=== PATIENT | male | born 1945 | race Caucasian/White ===

== ENCOUNTER 2021-05-18 13:51 | Inpatient (IN) | payer MEDICARE, OTHER ==
[~2021-05-18] VITALS: Ht 165.1 cm; Wt 63.0 kg
[2021-05-18] MEDS ORDERED: 0.9% SODIUM CHLORIDE 10 ML SYRINGE IVP PRN (14:30)
[2021-05-18] MEDS ORDERED: ACETAMINOPHEN 1000 MG/ISO-OSM 100 ML IV ONE (14:45)
[2021-05-18] MEDS ORDERED: ASPIRIN 81 MG CHEWABLE TABLET PO ONE (14:45)
[2021-05-18] MEDS ORDERED: ASPIRIN 325 MG DR TABLET PO ONE (14:45)
[2021-05-18] MEDS ORDERED: SODIUM CHLORIDE 0.9% 2,050 ML IV ONE (14:45)
[2021-05-18] MEDS ORDERED: ONDANSETRON HCL 4 MG/2 ML VIAL IVP ONE (14:45)
[2021-05-18 15:04] LABS: COVID AG,FIA SOURCE NASOPHARYNGEAL
[2021-05-18 15:07] LABS: BASOPHILS % (AUTO) 0.1 % (0.0-2.0); EOSINOPHILS % (AUTO) 0 % (1.0-6.0); HEMATOCRIT 39.2 % (41-53); HEMOGLOBIN 13.6 g/dL (13.5-17.5); LYMPHOCYTES # (AUTO) 0.8 K/uL (1.0-4.8); LYMPHOCYTES % (AUTO) 13.5 % (22.0-44.0); MEAN CORPUSCULAR HEMOGLOBIN 30.4 pg (26.0-34.0); MEAN CORPUSCULAR HGB CONC 34.6 G/dL (31.0-37.0); MEAN CORPUSCULAR VOLUME 88 fL (80-100); MONOCYTES # (AUTO) 0.3 K/uL (0.1-1.0); MONOCYTES % (AUTO) 5.2 % (2.0-9.0); NEUTROPHILS # (AUTO) 4.8 K/uL (1.8-7.7); NEUTROPHILS % (AUTO) 81.2 % (40.0-70.0); PLATELET COUNT (AUTO) 173 K/uL (150-450); RED BLOOD CELL COUNT(AUTO) 4.46 MIL/uL (4.50-5.90); RED CELL DISTRIBUTION WIDTH 13.4 % (11.5-14.5)
[2021-05-18 15:22] LABS: D-DIMER 0.47 mg/L FEU (0.00-0.50); INR 1.1 (0.9-1.1); PROTHROMBIN TIME 11.2 SEC (9.4-11.6)
[2021-05-18 15:26] LABS: ANION GAP 6 mmol/L (8-16); CALCIUM, TOTAL 8.1 mg/dL (8.8-10.5); CARBON DIOXIDE 29 mmol/L (22-29); CHLORIDE 100 mmol/L (98-107); CREATININE 1.17 mg/dL (0.60-1.30); GLUCOSE,RANDOM 229 mg/dL (70-110); SODIUM SERUM 135 mmol/L (136-145); UREA NITROGEN, BLOOD 16 mg/dL (7-18)
[2021-05-18 15:31] LABS: GLOMERULAR FILTR. RATE CALC > 60 mL/min (>60)
[2021-05-18 15:34] LABS: LACTIC ACID 1.1 mmol/L (0.4-2.0)
[2021-05-18 15:51] LABS: ALANINE AMINOTRANSFERASE 20 U/L (12-78); ALBUMIN 2.8 g/dL (3.4-5.0); ALKALINE PHOSPHATASE 70 U/L (46-116); ASPARTATE AMINOTRANSFERASE 34 U/L (15-37); BILIRUBIN,TOTAL 0.5 mg/dL (0.1-1.0); CREATINE KINASE, TOTAL ONLY 76 U/L (39-308); TOTAL PROTEIN, SERUM 7.7 g/dL (6.4-8.2)
[2021-05-18 15:53] LABS: B-TYPE NATRIURETIC PEPTIDE 37 pg/mL (0-100)
[2021-05-18] MEDS ORDERED: AZITHROMYCIN 500 MG/NS 250 ML IV ONE (16:00)
[2021-05-18] MEDS ORDERED: CefTRIAXone 1 GM/DEXTROSE 50 ML IV ONE (16:00)
[2021-05-18 16:18] LABS: INFLUENZA TYPE A NEGATIVE FOR TYPE A (NEGATIVE); INFLUENZA TYPE B NEGATIVE FOR TYPE B (NEGATIVE)
[2021-05-18] MEDS ORDERED: DEXTROSE 50%-WATER 25 GM/50 ML SYRINGE IVP PRN (18:15)
[2021-05-18] MEDS ORDERED: OxyCODONE HCL/ACETAMINOPHEN 5-325 MG TABLET PO PRN (18:15)
[2021-05-18 18:51] LABS: HEMOGLOBIN A1C 10.5 % (3.8-5.6)
[2021-05-18 18:55] LABS: C-REACTIVE PROTEIN QUANT 11.37 mg/dL (0.00-0.30); FERRITIN 505 ng/mL (26-388); LACTATE DEHYDROGENASE 340 U/L (85-227)
[2021-05-18] MEDS: DOCUSATE SODIUM 100 MG CAPSULE PO SCH (21:00)
[2021-05-18] MEDS ORDERED: BENZONATATE 100 MG CAPSULE PO PRN (21:15)
[2021-05-18 22:11] LABS: GLUCOMETER DEV NAME(LOC) 5S.2B; GLUCOSE,POINT OF CARE 189 MG/DL (70-110)
[2021-05-18 22:37] VITALS: BP 135/73
[2021-05-18] MEDS ORDERED: ONDANSETRON HCL 4 MG/2 ML VIAL IVP PRN (23:30)
[2021-05-18] MEDS: HEPARIN SODIUM,PORCINE 5,000 UNITS/ML VIAL SQ SCH (23:40)
[2021-05-19 05:30] VITALS: BP 125/70
[2021-05-19 05:56] LABS: GLUCOMETER DEV NAME(LOC) 5S.2B; GLUCOSE,POINT OF CARE 144 MG/DL (70-110)
[2021-05-19 08:06] VITALS: BP 117/65
[2021-05-19] MEDS: HEPARIN SODIUM,PORCINE 5,000 UNITS/ML VIAL SQ SCH ×2 (08:17→17:15)
[2021-05-19] MEDS: DOCUSATE SODIUM 100 MG CAPSULE PO SCH ×2 (08:18→20:46)
[2021-05-19] MEDS: ASPIRIN 81 MG CHEWABLE TABLET PO SCH (08:18)
[2021-05-19] MEDS: FAMOTIDINE 20 MG TABLET PO SCH (08:18)
[2021-05-19 10:45] VITALS: BP 126/66
[2021-05-19] MEDS ORDERED: REMDESIVIR 200 MG in SODIUM CHLORIDE 0.9% 250 ML IV ONE (11:15)
[2021-05-19] MEDS: INSULIN LISPRO 100 UNITS/ML SQ PRN ×3 (11:44→20:51)
[2021-05-19] MEDS ORDERED: SODIUM CHLORIDE 0.9% 500 ML IV ONE (13:16)
[2021-05-19 16:26] VITALS: BP 122/76
[2021-05-19 20:45] VITALS: BP 117/57
[2021-05-19] MEDS: ACETAMINOPHEN 325 MG TABLET PO PRN (20:52)
[2021-05-19 22:37] LABS: GLUCOMETER DEV NAME(LOC) 5S.2B; GLUCOSE,POINT OF CARE 220 MG/DL (70-110)
[2021-05-19 22:37] LABS: GLUCOMETER DEV NAME(LOC) 5S.2B; GLUCOSE,POINT OF CARE 235 MG/DL (70-110)
[2021-05-19] MEDS: ALBUTEROL SULFATE HFA 90 MCG/PUFF 8 GM INHALER IH PRN (22:51)
[2021-05-20] VITALS (7 sets, daily range): BP systolic 107–148; BP diastolic 58–78
[2021-05-20] MEDS: HEPARIN SODIUM,PORCINE 5,000 UNITS/ML VIAL SQ SCH ×4 (00:24→23:21)
[2021-05-20] MEDS: INSULIN LISPRO 100 UNITS/ML SQ PRN ×4 (05:35→21:18)
[2021-05-20 07:36] LABS: GLUCOMETER DEV NAME(LOC) 5S.2B; GLUCOSE,POINT OF CARE 178 MG/DL (70-110)
[2021-05-20] MEDS: ASPIRIN 81 MG CHEWABLE TABLET PO SCH (09:36)
[2021-05-20] MEDS: DOCUSATE SODIUM 100 MG CAPSULE PO SCH ×2 (09:36→21:19)
[2021-05-20] MEDS: FAMOTIDINE 20 MG TABLET PO SCH (09:36)
[2021-05-20] MEDS: ACETAMINOPHEN 325 MG TABLET PO PRN (10:05)
[2021-05-20] MEDS: DEXAMETHASONE 4 MG TABLET PO SCH (13:20)
[2021-05-20] MEDS: REMDESIVIR 100 MG in SODIUM CHLORIDE 0.9% 250 ML IV SCH (13:26)
[2021-05-20 17:51] LABS: GLUCOMETER DEV NAME(LOC) 5N.3; GLUCOSE,POINT OF CARE 223 MG/DL (70-110)
[2021-05-20 21:12] LABS: GLUCOMETER DEV NAME(LOC) 5S.1; GLUCOSE,POINT OF CARE 263 MG/DL (70-110)
[2021-05-20 21:12] LABS: GLUCOMETER DEV NAME(LOC) 5S.1; GLUCOSE,POINT OF CARE 181 MG/DL (70-110)
[2021-05-20 21:12] LABS: GLUCOMETER DEV NAME(LOC) 5S.1; GLUCOSE,POINT OF CARE 159 MG/DL (70-110)
[2021-05-21 04:25] VITALS: BP 150/81
[2021-05-21] MEDS: INSULIN LISPRO 100 UNITS/ML SQ PRN ×4 (05:29→21:08)
[2021-05-21 07:21] LABS: GLUCOMETER DEV NAME(LOC) 5N.1C; GLUCOSE,POINT OF CARE 219 MG/DL (70-110)
[2021-05-21] MEDS: ASPIRIN 81 MG CHEWABLE TABLET PO SCH (08:49)
[2021-05-21] MEDS: DEXAMETHASONE 4 MG TABLET PO SCH (08:49)
[2021-05-21] MEDS: DOCUSATE SODIUM 100 MG CAPSULE PO SCH ×2 (08:49→19:41)
[2021-05-21] MEDS: FAMOTIDINE 20 MG TABLET PO SCH (08:49)
[2021-05-21] MEDS: HEPARIN SODIUM,PORCINE 5,000 UNITS/ML VIAL SQ SCH ×3 (08:50→23:30)
[2021-05-21 09:15] VITALS: BP 136/84
[2021-05-21 12:15] LABS: ALANINE AMINOTRANSFERASE 14 U/L (12-78); ALBUMIN 2.3 g/dL (3.4-5.0); ALKALINE PHOSPHATASE 73 U/L (46-116); ANION GAP 9 mmol/L (8-16); ASPARTATE AMINOTRANSFERASE 26 U/L (15-37); BILIRUBIN,TOTAL 0.8 mg/dL (0.1-1.0); C-REACTIVE PROTEIN QUANT 13.93 mg/dL (0.00-0.30); CALCIUM, TOTAL 8.4 mg/dL (8.8-10.5); CARBON DIOXIDE 27 mmol/L (22-29); CHLORIDE 101 mmol/L (98-107); CREATININE 1.11 mg/dL (0.60-1.30); FERRITIN 1270 ng/mL (26-388); GLUCOSE,RANDOM 358 mg/dL (70-110); POTASSIUM 4.5 mmol/L (3.5-5.1); SODIUM SERUM 137 mmol/L (136-145); TOTAL PROTEIN, SERUM 7.2 g/dL (6.4-8.2); UREA NITROGEN, BLOOD 24 mg/dL (7-18)
[2021-05-21 12:16] LABS: GLOMERULAR FILTR. RATE CALC > 60 mL/min (>60)
[2021-05-21 12:26] LABS: GLUCOMETER DEV NAME(LOC) 5S.2B; GLUCOSE,POINT OF CARE 382 MG/DL (70-110)
[2021-05-21 12:52] VITALS: BP 148/76
[2021-05-21] MEDS: REMDESIVIR 100 MG in SODIUM CHLORIDE 0.9% 250 ML IV SCH (13:47)
[2021-05-21 16:00] VITALS: BP 122/70
[2021-05-21 19:35] VITALS: BP 133/78
[2021-05-21 20:55] LABS: GLUCOMETER DEV NAME(LOC) 5N.1C; GLUCOSE,POINT OF CARE 236 MG/DL (70-110)
[2021-05-21 23:23] VITALS: BP 124/71
[2021-05-22 00:56] LABS: GLUCOMETER DEV NAME(LOC) 5S.2B; GLUCOSE,POINT OF CARE 301 MG/DL (70-110)
[2021-05-22 03:43] VITALS: BP 150/83
[2021-05-22] MEDS: INSULIN LISPRO 100 UNITS/ML SQ PRN ×4 (05:59→21:12)
[2021-05-22 07:01] LABS: GLUCOMETER DEV NAME(LOC) 5N.1C; GLUCOSE,POINT OF CARE 244 MG/DL (70-110)
[2021-05-22 07:26] LABS: ALANINE AMINOTRANSFERASE 14 U/L (12-78); ALBUMIN 2.1 g/dL (3.4-5.0); ALKALINE PHOSPHATASE 71 U/L (46-116); ANION GAP 6 mmol/L (8-16); ASPARTATE AMINOTRANSFERASE 26 U/L (15-37); BILIRUBIN,TOTAL 0.4 mg/dL (0.1-1.0); CARBON DIOXIDE 27 mmol/L (22-29); CHLORIDE 104 mmol/L (98-107); FERRITIN 829 ng/mL (26-388); GLUCOSE,RANDOM 249 mg/dL (70-110); POTASSIUM 4.3 mmol/L (3.5-5.1); SODIUM SERUM 137 mmol/L (136-145); TOTAL PROTEIN, SERUM 6.4 g/dL (6.4-8.2); UREA NITROGEN, BLOOD 25 mg/dL (7-18)
[2021-05-22 07:27] LABS: GLOMERULAR FILTR. RATE CALC > 60 mL/min (>60)
[2021-05-22 08:00] VITALS: BP 124/65
[2021-05-22] MEDS: DEXAMETHASONE 4 MG TABLET PO SCH (08:47)
[2021-05-22] MEDS: FAMOTIDINE 20 MG TABLET PO SCH (08:47)
[2021-05-22] MEDS: DOCUSATE SODIUM 100 MG CAPSULE PO SCH ×2 (08:47→21:13)
[2021-05-22] MEDS: ASPIRIN 81 MG CHEWABLE TABLET PO SCH (08:47)
[2021-05-22] MEDS: HEPARIN SODIUM,PORCINE 5,000 UNITS/ML VIAL SQ SCH ×3 (08:47→23:41)
[2021-05-22] MEDS: ALBUTEROL SULFATE HFA 90 MCG/PUFF 8 GM INHALER IH PRN (09:43)
[2021-05-22 11:32] VITALS: BP 133/68
[2021-05-22] MEDS: REMDESIVIR 100 MG in SODIUM CHLORIDE 0.9% 250 ML IV SCH (14:34)
[2021-05-22 15:54] VITALS: BP 148/76
[2021-05-22] MEDS ORDERED: TOCILIZUMAB 600 MG in SODIUM CHLORIDE 0.9% 70 ML IV ONE (17:00)
[2021-05-22 17:41] LABS: GLUCOMETER DEV NAME(LOC) 5N.3; GLUCOSE,POINT OF CARE 307 MG/DL (70-110)
[2021-05-22 17:52] LABS: GLUCOMETER DEV NAME(LOC) 5S.2B; GLUCOSE,POINT OF CARE 285 MG/DL (70-110)
[2021-05-22 20:15] VITALS: BP 163/81
[2021-05-23 00:21] VITALS: BP 155/87
[2021-05-23 04:28] VITALS: BP 154/86
[2021-05-23] MEDS: INSULIN LISPRO 100 UNITS/ML SQ PRN ×4 (06:01→21:10)
[2021-05-23 06:54] LABS: ALANINE AMINOTRANSFERASE 39 U/L (12-78); ALKALINE PHOSPHATASE 77 U/L (46-116); ANION GAP 1 mmol/L (8-16); ASPARTATE AMINOTRANSFERASE 63 U/L (15-37); BILIRUBIN,TOTAL 0.4 mg/dL (0.1-1.0); CALCIUM, TOTAL 7.8 mg/dL (8.8-10.5); CARBON DIOXIDE 29 mmol/L (22-29); CHLORIDE 106 mmol/L (98-107); CREATININE 0.83 mg/dL (0.60-1.30); GLUCOSE,RANDOM 231 mg/dL (70-110); POTASSIUM 4.2 mmol/L (3.5-5.1); SODIUM SERUM 136 mmol/L (136-145); TOTAL PROTEIN, SERUM 6.2 g/dL (6.4-8.2); UREA NITROGEN, BLOOD 22 mg/dL (7-18)
[2021-05-23 06:55] LABS: GLOMERULAR FILTR. RATE CALC > 60 mL/min (>60)
[2021-05-23 08:00] VITALS: BP 168/84
[2021-05-23 08:22] LABS: GLUCOMETER DEV NAME(LOC) 5S.1; GLUCOSE,POINT OF CARE 286 MG/DL (70-110)
[2021-05-23 08:22] LABS: GLUCOMETER DEV NAME(LOC) 5S.1; GLUCOSE,POINT OF CARE 231 MG/DL (70-110)
[2021-05-23] MEDS: DEXAMETHASONE 4 MG TABLET PO SCH (09:13)
[2021-05-23] MEDS: DOCUSATE SODIUM 100 MG CAPSULE PO SCH ×2 (09:13→21:08)
[2021-05-23] MEDS: FAMOTIDINE 20 MG TABLET PO SCH (09:13)
[2021-05-23] MEDS: ASPIRIN 81 MG CHEWABLE TABLET PO SCH (09:13)
[2021-05-23] MEDS: HEPARIN SODIUM,PORCINE 5,000 UNITS/ML VIAL SQ SCH ×3 (09:14→23:34)
[2021-05-23 11:26] VITALS: BP 150/71
[2021-05-23] MEDS: REMDESIVIR 100 MG in SODIUM CHLORIDE 0.9% 250 ML IV SCH (15:05)
[2021-05-23 16:00] VITALS: BP 166/78
[2021-05-23 18:17] LABS: GLUCOMETER DEV NAME(LOC) 5N.3; GLUCOSE,POINT OF CARE 282 MG/DL (70-110)
[2021-05-23 18:17] LABS: GLUCOMETER DEV NAME(LOC) 5N.3; GLUCOSE,POINT OF CARE 284 MG/DL (70-110)
[2021-05-23 19:55] VITALS: BP 113/61
[2021-05-24] VITALS: BP 158/78
[2021-05-24 00:37] LABS: GLUCOMETER DEV NAME(LOC) 5N.1C; GLUCOSE,POINT OF CARE 238 MG/DL (70-110)
[2021-05-24 04:05] VITALS: BP 150/85
[2021-05-24] MEDS: INSULIN LISPRO 100 UNITS/ML SQ PRN ×4 (05:26→21:22)
[2021-05-24 08:16] LABS: GLUCOMETER DEV NAME(LOC) 5S.1; GLUCOSE,POINT OF CARE 218 MG/DL (70-110)
[2021-05-24] MEDS: HEPARIN SODIUM,PORCINE 5,000 UNITS/ML VIAL SQ SCH ×2 (08:49→17:12)
[2021-05-24] MEDS: FAMOTIDINE 20 MG TABLET PO SCH (08:49)
[2021-05-24 08:50] VITALS: BP 126/70
[2021-05-24] MEDS: DEXAMETHASONE 4 MG TABLET PO SCH (08:50)
[2021-05-24] MEDS: DOCUSATE SODIUM 100 MG CAPSULE PO SCH ×2 (08:50→21:14)
[2021-05-24] MEDS: ASPIRIN 81 MG CHEWABLE TABLET PO SCH (08:50)
[2021-05-24 12:35] VITALS: BP 158/77
[2021-05-24 12:47] LABS: GLUCOMETER DEV NAME(LOC) 5S.2B; GLUCOSE,POINT OF CARE 202 MG/DL (70-110)
[2021-05-24 16:05] VITALS: BP 167/90
[2021-05-24 17:36] LABS: GLUCOMETER DEV NAME(LOC) 5S.2B; GLUCOSE,POINT OF CARE 318 MG/DL (70-110)
[2021-05-24 19:24] VITALS: BP 97/51
[2021-05-24] MEDS ORDERED: INSULIN GLARGINE,HUM.REC.ANLOG 100 UNITS/ML SQ SCH (21:00)
[2021-05-24] MEDS: ALBUTEROL SULFATE HFA 90 MCG/PUFF 8 GM INHALER IH PRN (21:31)
[2021-05-25 00:04] VITALS: BP 139/77
[2021-05-25] MEDS: HEPARIN SODIUM,PORCINE 5,000 UNITS/ML VIAL SQ SCH ×3 (00:10→17:24)
[2021-05-25 05:02] VITALS: BP 134/80
[2021-05-25] MEDS: INSULIN LISPRO 100 UNITS/ML SQ PRN ×4 (06:20→23:07)
[2021-05-25 07:15] VITALS: BP 124/74
[2021-05-25] MEDS: FAMOTIDINE 20 MG TABLET PO SCH (09:05)
[2021-05-25] MEDS: DOCUSATE SODIUM 100 MG CAPSULE PO SCH ×2 (09:05→23:04)
[2021-05-25] MEDS: DEXAMETHASONE 4 MG TABLET PO SCH (09:06)
[2021-05-25] MEDS: LOSARTAN POTASSIUM 25 MG TABLET PO SCH (09:06)
[2021-05-25] MEDS: ASPIRIN 81 MG CHEWABLE TABLET PO SCH (09:06)
[2021-05-25 10:42] VITALS: BP 132/68
[2021-05-25 15:17] VITALS: BP 158/72
[2021-05-25 17:26] LABS: GLUCOMETER DEV NAME(LOC) 5N.3; GLUCOSE,POINT OF CARE 270 MG/DL (70-110)
[2021-05-25 17:26] LABS: GLUCOMETER DEV NAME(LOC) 5N.3; GLUCOSE,POINT OF CARE 252 MG/DL (70-110)
[2021-05-25 17:26] LABS: GLUCOMETER DEV NAME(LOC) 5N.3; GLUCOSE,POINT OF CARE 218 MG/DL (70-110)
[2021-05-25 19:45] VITALS: BP 113/62
[2021-05-25] MEDS: INSULIN GLARGINE,HUM.REC.ANLOG 100 UNITS/ML SQ SCH (23:07)
[2021-05-25 23:36] LABS: GLUCOMETER DEV NAME(LOC) 5S.1; GLUCOSE,POINT OF CARE 269 MG/DL (70-110)
[2021-05-25 23:36] LABS: GLUCOMETER DEV NAME(LOC) 5S.1; GLUCOSE,POINT OF CARE 409 MG/DL (70-110)
[2021-05-26] VITALS (7 sets, daily range): BP systolic 110–139; BP diastolic 61–79
[2021-05-26] MEDS: HEPARIN SODIUM,PORCINE 5,000 UNITS/ML VIAL SQ SCH ×4 (00:03→23:37)
[2021-05-26] MEDS: DEXAMETHASONE 4 MG TABLET PO SCH (09:19)
[2021-05-26] MEDS: MULTIVITAMINS WITH MINERALS, THERAPEUTIC TABLET PO SCH (09:20)
[2021-05-26] MEDS: FAMOTIDINE 20 MG TABLET PO SCH (09:20)
[2021-05-26] MEDS: DOCUSATE SODIUM 100 MG CAPSULE PO SCH ×2 (09:20→21:00)
[2021-05-26] MEDS: LOSARTAN POTASSIUM 25 MG TABLET PO SCH (09:20)
[2021-05-26] MEDS: ASPIRIN 81 MG CHEWABLE TABLET PO SCH (09:20)
[2021-05-26] MEDS: INSULIN LISPRO 100 UNITS/ML SQ PRN ×3 (12:04→21:16)
[2021-05-26 12:27] LABS: GLUCOMETER DEV NAME(LOC) 5N.3; GLUCOSE,POINT OF CARE 143 MG/DL (70-110)
[2021-05-26] MEDS ORDERED: ASPI81 PO (12:48)
[2021-05-26] MEDS ORDERED: BENZ-70 PO (12:48)
[2021-05-26] MEDS ORDERED: LOSA-370 PO (12:48)
[2021-05-26] MEDS ORDERED: FAMO20 PO (12:48)
[2021-05-26] MEDS ORDERED: DEXA4 PO (12:48)
[2021-05-26] MEDS ORDERED: MULT-1239 PO (12:48)
[2021-05-26] MEDS ORDERED: METF-1211 PO (12:55)
[2021-05-26 17:52] LABS: GLUCOMETER DEV NAME(LOC) 5N.1C; GLUCOSE,POINT OF CARE 222 MG/DL (70-110)
[2021-05-26] MEDS: INSULIN GLARGINE,HUM.REC.ANLOG 100 UNITS/ML SQ SCH (21:16)
[2021-05-27 04:15] VITALS: BP 118/64
[2021-05-27 07:24] VITALS: BP 112/70
[2021-05-27] MEDS: HEPARIN SODIUM,PORCINE 5,000 UNITS/ML VIAL SQ SCH ×2 (08:06→16:46)
[2021-05-27 08:11] LABS: GLUCOMETER DEV NAME(LOC) 5N.1C; GLUCOSE,POINT OF CARE 385 MG/DL (70-110)
[2021-05-27] MEDS: MULTIVITAMINS WITH MINERALS, THERAPEUTIC TABLET PO SCH (08:17)
[2021-05-27] MEDS: FAMOTIDINE 20 MG TABLET PO SCH (08:17)
[2021-05-27] MEDS: DOCUSATE SODIUM 100 MG CAPSULE PO SCH ×2 (08:17→20:57)
[2021-05-27] MEDS: LOSARTAN POTASSIUM 25 MG TABLET PO SCH (08:17)
[2021-05-27] MEDS: DEXAMETHASONE 4 MG TABLET PO SCH (08:17)
[2021-05-27] MEDS: ASPIRIN 81 MG CHEWABLE TABLET PO SCH (08:17)
[2021-05-27 11:17] VITALS: BP 142/74
[2021-05-27] MEDS: INSULIN LISPRO 100 UNITS/ML SQ PRN ×2 (12:08→21:02)
[2021-05-27 15:29] VITALS: BP 145/76
[2021-05-27 15:44] LABS: COVID AG,FIA SOURCE NASAL SWAB
[2021-05-27 20:52] LABS: GLUCOMETER DEV NAME(LOC) 5N.3; GLUCOSE,POINT OF CARE 373 MG/DL (70-110)
[2021-05-27 20:52] LABS: GLUCOMETER DEV NAME(LOC) 5N.3; GLUCOSE,POINT OF CARE 104 MG/DL (70-110)
[2021-05-27] MEDS: INSULIN GLARGINE,HUM.REC.ANLOG 100 UNITS/ML SQ SCH (21:01)
[2021-05-28] VITALS: BP 134/91
[2021-05-28 05:46] LABS: GLUCOMETER DEV NAME(LOC) 5N.3; GLUCOSE,POINT OF CARE 363 MG/DL (70-110)
[2021-05-28 06:07] LABS: GLUCOMETER DEV NAME(LOC) 5N.1C; GLUCOSE,POINT OF CARE 270 MG/DL (70-110)
== END 2021-05-28 00:50 | disposition home or self-care (01) | DRG 177 ==
LOC: EMS 13:56 → 5S 20:39
PROVIDERS: ADMIT Internal Medicine; ATTEND Internal Medicine
PROC: XW033E5 Introduction of Remdesivir Anti-infective into Peripheral Vein, Percutaneous Approach, New Technology Group 5 (ICD-10-PCS; principal; 2021-05-19)
PROC: XW033H5 Introduction of Tocilizumab into Peripheral Vein, Percutaneous Approach, New Technology Group 5 (ICD-10-PCS; 2021-05-22)
PROC: 5A0935A Assistance with Respiratory Ventilation, Less than 24 Consecutive Hours, High Flow/Velocity Cannula (ICD-10-PCS; 2021-05-22)
PROC: 5A0935A Assistance with Respiratory Ventilation, Less than 24 Consecutive Hours, High Flow/Velocity Cannula (ICD-10-PCS; 2021-05-23)
PROC: 5A0935A Assistance with Respiratory Ventilation, Less than 24 Consecutive Hours, High Flow/Velocity Cannula (ICD-10-PCS; 2021-05-24)
DX: U07.1 COVID-19 (principal); J12.82 Pneumonia due to coronavirus disease 2019; J96.01 Acute respiratory failure with hypoxia; E87.1 Hypo-osmolality and hyponatremia; E11.65 Type 2 diabetes mellitus with hyperglycemia; I10 Essential (primary) hypertension; D72.810 Lymphocytopenia; R53.81 Other malaise; Z83.3 Family history of diabetes mellitus; Z86.718 Personal history of other venous thrombosis and embolism
CPT/HCPCS: 71045; 80053; 82550; 82728; 82962; 83036; 83605; 83615; 83880; 84145; 84484; 85025; 85379; 85610; 85730; 86140; 87040; 87804; 93005; 93306; 99285; J0131; J0456; J0696; J1644; J1815; J2405; J3535; J7030; J7040; J7050; J8540; Q9967; 36415-L1; 36415-TC; U0003